=== PATIENT | male | born 1980 | race African-American/Black ===

== ENCOUNTER 2017-02-15 19:02 | Emergency (ER) | payer SELFPAY ==
[2017-02-15 19:12] VITALS: BMI 31.3
--- NOTE | 2017-02-15 19:32 | DR.GENAD ---
HPI - PCP Primary Care Physician: OPAL - Complaint/Symptoms Chief Complaint Doctors Comments: A 36 y/o male presenting with a little chest pain since this morning at 6 a.m. He described this as a stabbing feeling. It had been intermittent but became constant at about 2 PM, yet he stayed at work to work through his shift. He has no associated symptom with the stabbing chest pain. Chief Complaint:: CP ONSET THIS AM Self Treatment fo Chief Complaint: NONE - Source History Provided: Patient - Mode of Arrival Mode of Arrival: Ambulatory - Timing Onset of Chief Complaint: 02/15/17 PMH - PMH Past Medical History: Yes Past Medical History: Anxiety Past Medical History Comment: Chronic LBP Past Surgical History: No - Family History History of Family Medical Conditions: Yes Family Medical History: Cancer, Coronary Artery Disease, Heart Failure, Hypertension - Social History Does patient currently use any type of tobacco product: Yes Have you used tobacco products in the last 12 months: Yes Type of Tobacco Use: Cigarettes Does any household member use tobacco: No Alcohol Use: None Do you use any recreational Drugs:: No Lives With: Family Lives Where: Home - infectious screening In the last 2 months have you had wt loss of >10#?: NO Have you had fever, night sweats or hemotysis?: No Have you traveled outside the country in the last 6 months?: No Isolation: Standard ROS - Review of Systems Constitutional: No Symptoms Reported Eyes: No Symptoms Reported ENTM: No Symptoms Reported Respiratoy: No Symptoms Reported Cardiovascular: Chest Pain Gastrointestinal/Abdominal: No Symptoms Reported Genitourinary: No Symptoms Reported Neurological: No Symptoms Reported Musculoskeletal: No Symptoms Reported Integumentary: No Symptoms Reported Hematologic/Lymphatic: No Symptoms Reported Endocrine: No Symptoms Reported Psychiatric: No Symptoms Reported All Other Systems: Reviewed and Negative PE - Vital Signs Vitals: Temperature 97.2 F Pulse Rate [Left Brachial] 63 Pulse Rate 77 Respiratory Rate 16 Blood Pressure [Left Arm] 156/89 Blood Pressure 156/90 O2 Sat by Pulse Oximetry 99 - General Limitations: No Limitations General Appearance: Other (He's sleepy easy to arouse and falls asleep during conversation and exam. He claims that he wakes up early to be at work by 6AM. Reportedly his last dose of Xanax and Lortab was this morning and he's had only 1/2 a tab of each at that time.) - Head Head Exam: Normal Inspection - Eyes Eye exam: Normal Appearance - ENT ENT Exam: Normal Exam - Neck Neck Exam: Normal Inspection - Chest Chest Inspection: Normal Inspection - Respiratory Respiratory Exam: Normal Lung Sounds Bilat - Cardiovascular Cardiovascular Exam: Regular Rate, Normal Rhythm - Abdominal Exam Abdominal Exam: Normal Inspection, Normal Bowel Sounds, Soft - Extremities Extremities Exam: Normal Inspection - Back Back Exam: Normal Inspection - Neurologic Neurological Exam: Oriented X3, CN II-XII Intact - Psychiatric Psychiatric Exam: Normal Affect, Normal Mood - Skin Skin Exam: Warm Course - Reevaluation 1st: Improved 2nd: Improved - Education/Counseling Education/Counseling: Patient, Family Educated On: Treatment, Diagnosis, Prognosis, Needs for Follow Up (He has a normal EKG, Total CK and CK-MB were elevated with a normal Troponin. I went in and discussed tests results with him. My recommendation was for OBS to repeat cardiac enzymes and monitor his symptoms. He sates he has to go home and be in his bed as he has to get up in the bruna morning hours to be at work. His job is labor intensive with activand repeated muscle use but it is still prudent to trend his status. But wants to go home. He will return to E/D if symptoms recur.) ROR - Labs Reviewed Result Diagrams: 02/15/17 19:56 02/15/17 19:56 Laboratory: WBC 8.2 X10^3/uL (3.6-10.0) 02/15/17 19:56 RBC 4.72 X10^6/uL (4.7-6.0) 02/15/17 19:56 Hgb 13.1 g/dL (13.5-18.0) L 02/15/17 19:56 Hct 39.9 % (42.0-54.0) L 02/15/17 19:56 MCV 84.6 fL (80.0-100.0) 02/15/17 19:56 MCH 27.8 pg (27.0-34.0) 02/15/17 19:56 MCHC 32.8 g/dL (33.0-35.0) L 02/15/17 19:56 RDW 14.5 % (11.6-16.5) 02/15/17 19:56 Plt Count 262 X10^3/uL (150.0-450.0) 02/15/17 19:56 MPV 8.6 fL (7.4-11.0) 02/15/17 19:56 Neut % 59.0 % (42.0-75.0) 02/15/17 19:56 Lymph % 26.9 % (21.0-51.0) 02/15/17 19:56 [place] % 10.6 % (0.0-13.0) 02/15/17 19:56 Eos % 2.5 % (0.9-2.9) 02/15/17 19:56 Baso % 1.0 % (0.2-1.0) 02/15/17 19:56 Neut # 4.8 x10^3/uL (2.2-4.8) 02/15/17 19:56 Lymph # 2.2 X10^3/uL (1.3-2.9) 02/15/17 19:56 [place] # 0.9 x10^3/uL (0.3-0.8) H 02/15/17 19:56 Eos # 0.2 x10^3/uL (0.0-0.2) 02/15/17 19:56 Baso # 0.1 X10^3/uL (0.0-0.1) 02/15/17 19:56 Absolute Nucleated RBC 0.0 /100WBC 02/15/17 19:56 Sodium 145 mmol/L (136-145) 02/15/17 19:56 Corrected Sodium TNP 02/15/17 19:56 Potassium 3.7 mmol/L (3.5-5.1) 02/15/17 19:56 Chloride 106 mmol/L (98-107) 02/15/17 19:56 Carbon Dioxide 32.6 mmol/L (21-32) H 02/15/17 19:56 BUN 10 mg/dL (7-18) 02/15/17 19:56 Creatinine 1.15 mg/dL (0.70-1.30) 02/15/17 19:56 Est GFR (MDRD) Af Amer > 60 (>60) 02/15/17 19:56 Est GFR (MDRD) Non-Af > 60 (>60) 02/15/17 19:56 Glucose 104 mg/dL (65-99) H 02/15/17 19:56 Calcium 8.6 mg/dL (8.5-10.1) 02/15/17 19:56 Corrected Calcium TNP 02/15/17 19:56 Total Bilirubin 0.10 mg/dL (0.2-1.0) L 02/15/17 19:56 AST 34 Units/L (15-37) 02/15/17 19:56 ALT 39 Units/L (12-78) 02/15/17 19:56 Alkaline Phosphatase 115 Units/L (46-116) 02/15/17 19:56 Creatine Kinase 829 Units/L (39-308) H 02/15/17 19:56 CK-MB (CK-2) 5.3 ng/mL (0-4.0) H* 02/15/17 19:56 CK/CKMB % Calc 0.6 % (<4) 02/15/17 19:56 Troponin I < 0.02 ng/mL (0-1.5) 02/15/17 19:56 Total Protein 7.0 g/dL (6.4-8.2) 02/15/17 19:56 Albumin 3.4 g/dL (3.4-5.0) 02/15/17 19:56 Globulin 3.6 g/dL (2.5-4.5) 02/15/17 19:56 Albumin/Globulin Ratio 0.9 Ratio (1.1-2.1) L 02/15/17 19:56 - EKG Rate: 73 [place]: Normal Rhythm: NSR Block: None Hypertrophy: LVH ST: Normal - Diagnosis Discharge Problem: Chest pain - Follow ups/Referrals Follow ups/Referrals: Dakota JOSEPH [STAFF PHYSICIAN] - 3 days - Instructions
[2017-02-15 20:04] LABS: BASOPHILS # (AUTO) 0.1 X10^3/uL (0.0-0.1); EOSINOPHILS # (AUTO) 0.2 x10^3/uL (0.0-0.2); EOSINOPHILS % (AUTO) 2.5 % (0.9-2.9); HEMATOCRIT 39.9 % (42.0-54.0); HEMOGLOBIN 13.1 g/dL (13.5-18.0); LYMPHOCYTES # (AUTO) 2.2 X10^3/uL (1.3-2.9); LYMPHOCYTES % (AUTO) 26.9 % (21.0-51.0); MEAN CORPUSCULAR HEMOGLOBIN 27.8 pg (27.0-34.0); MEAN CORPUSCULAR HGB CONC 32.8 g/dL (33.0-35.0); MEAN CORPUSCULAR VOLUME 84.6 fL (80.0-100.0); MEAN PLATELET VOLUME 8.6 fL (7.4-11.0); MONOCYTES # (AUTO) 0.9 x10^3/uL (0.3-0.8); MONOCYTES % (AUTO) 10.6 % (0.0-13.0); NEUTROPHILS # (AUTO) 4.8 x10^3/uL (2.2-4.8); PLATELET COUNT 262 X10^3/uL (150.0-450.0); RED BLOOD COUNT 4.72 X10^6/uL (4.7-6.0); RED CELL DISTRIBUTION WIDTH 14.5 % (11.6-16.5); WHITE BLOOD COUNT 8.2 X10^3/uL (3.6-10.0)
[2017-02-15 20:21] LABS: BLOOD UREA NITROGEN 10 mg/dL (7-18); CALCIUM 8.6 mg/dL (8.5-10.1); CARBON DIOXIDE 32.6 mmol/L (21-32); CHLORIDE 106 mmol/L (98-107); CREATININE 1.15 mg/dL (0.70-1.30); SODIUM 145 mmol/L (136-145); TROPONIN I < 0.02 ng/mL (0-1.5); eGFR BLACK RACES > 60 (>60); eGFR NON BLACK RACES > 60 (>60)
[2017-02-15 20:44] LABS: ALANINE AMINOTRANSFERASE 39 Units/L (12-78); ALBUMIN 3.4 g/dL (3.4-5.0); ALKALINE PHOSPHATASE 115 Units/L (46-116); ASPARTATE AMINO TRANSFERASE 34 Units/L (15-37); CKMB % 0.6 % (<4); CREATINE KINASE 829 Units/L (39-308)
[2017-02-15 20:45] LABS: CREATINE KINASE MB 5.3 ng/mL (0-4.0)
[2017-02-15 21:32] VITALS: BP 156/89
== END 2017-02-15 22:02 | disposition home or self-care (01) ==
LOC: ER 19:15
DX: R07.89 Other chest pain (principal)
CPT/HCPCS: 36415; 80053; 82550; 82553; 84484; 85025; 93005; 93010; 99283

== ENCOUNTER 2017-07-03 13:30 | Emergency (ER) | payer SELFPAY ==
[2017-07-03 13:42] VITALS: BP 140/72; BMI 32.2
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
== END 2017-07-03 14:41 | disposition home or self-care (01) ==
LOC: ER 13:44
DX: R60.0 Localized edema (principal)
CPT/HCPCS: 99281; 99282